=== PATIENT | male | born 1940 | race Caucasian/White ===

== ENCOUNTER 2021-12-21 07:06 | Observation (INO) ==
--- NOTE | 2021-11-18 14:10 | PAT Medication Instructions ---
Medication Instructions Date of Service November 18, 2021 Home Medications zinc sulfate 50 mg zinc (220 mg) capsule 50 mg PO Q2D aspirin 81 mg tablet,delayed release (Aspir-) 81 mg PO HS carbidopa 25 mg-levodopa 100 mg tablet (Sinemet) 1 tab PO TID gabapentin 100 mg capsule 100 mg PO HS magnesium oxide 400 mg PO QAM metoprolol succinate 50 mg tablet,extended release 24 hr 25 mg PO QAM ropinirole 4 mg tablet,extended release 24 hr 4 mg PO BID rosuvastatin 20 mg sprinkle capsule 20 mg PO HS cholecalciferol (vitamin D3) 10 mcg (400 unit) tablet (Vitamin D3) 10 mcg PO QAM finasteride 5 mg tablet 5 mg PO QAM meloxicam 15 mg tablet 15 mg PO QAM oxybutynin chloride 15 mg tablet,extended release 24 hr 15 mg PO HS sildenafil 25 mg tablet 25 mg PO UD PRN sexual intercourse tadalafil 5 mg tablet 5 mg PO HS STOP taking 24 hours before surgery sildenafil 25 mg tablet 25 mg PO UD PRN sexual intercourse DO NOT take the morning of surgery zinc sulfate 50 mg zinc (220 mg) capsule 50 mg PO Q2D magnesium oxide 400 mg PO QAM cholecalciferol (vitamin D3) 10 mcg (400 unit) tablet (Vitamin D3) 10 mcg PO QAM Take morning of surgery With a small sip of water, OTHERWISE NOTHING TO EAT OR DRINK AFTER MIDNIGHT: carbidopa 25 mg-levodopa 100 mg tablet (Sinemet) 1 tab PO TID metoprolol succinate 50 mg tablet,extended release 24 hr 25 mg PO QAM ropinirole 4 mg tablet,extended release 24 hr 4 mg PO BID finasteride 5 mg tablet 5 mg PO QAM Take evening before surgery aspirin 81 mg tablet,delayed release (Aspir-) 81 mg PO HS (continue as normal unless told otherwise by surgeon) carbidopa 25 mg-levodopa 100 mg tablet (Sinemet) 1 tab PO TID gabapentin 100 mg capsule 100 mg PO HS ropinirole 4 mg tablet,extended release 24 hr 4 mg PO BID rosuvastatin 20 mg sprinkle capsule 20 mg PO HS oxybutynin chloride 15 mg tablet,extended release 24 hr 15 mg PO HS tadalafil 5 mg tablet 5 mg PO HS Other Notes If you have any questions please call us at [phone] or [phone] or [phone] or [phone]
--- NOTE | 2021-11-26 12:18 | Anesthesiology Consultation ---
Date of Service November 26, 2021 Assessment & Plan (1) Encounter for pre-operative examination: - case discussed in detail with Dr. Franz who advised pt is acceptable to proceed without further evaluation or testing. - severe RLS: Pt states will need medication regimen continued as normal throughout hospital stay. He states will also notify surgeon's office. - cardiology office visit 04/07/2021: "...CAD s/p PCI 05/13/2015 LAD [employer] promus premier 2.25 mm x 16 mm at [place]...catheterization 01/02/19 at [facility] with non-obstructive CAD. Remains asymptomatic and stable at today's visit. July 2019 nuclear stress no ischemia...RBBB...return 1 year..." - Outpatient joint assessment: Patient is currently scheduled for inpatient pathway. If re-evaluated pending system levels during current pandemic/surgeon requests outpatient pathway, patient is not acceptable candidate for outpatient joint program from anesthesia standpoint. Chart Review Chart Review: Acceptable Risk for Surgery and Patient seen in Pre Admission Testing Teaching & Discussion Pre-Anesthesia Teaching/Discussion Notes: Instructed NPO after midnight before surgery, except medications with 15 cc of water. Medication instructions provided according to the PAT guidelines. History Surgery Operation Date: 12/21/21 07:15 Proposed Procedures p Left Total Knee Arthroplasty - Raphael Lugo MD Height/Weight Height: 5 ft 7 in Weight: 95 kg Allergies Allergy/AdvReac Type Severity Reaction Status Date / Time mirabegron [From Myrbetriq] Allergy "can't Verified 11/17/21 08:05 remember the reaction" hydrocodone AdvReac Unknown GI UPSET Verified 11/17/21 08:05 oxycodone AdvReac Unknown GI UPSET Verified 11/17/21 08:05 vicodin Allergy Unknown Uncoded 11/26/21 12:27 Medications Home Medications Medication Instructions Recorded Confirmed Last Taken zinc sulfate 50 mg zinc (220 mg) 50 mg PO Q2D #0 caps 11/11/11 11/17/21 Unknown capsule aspirin 81 mg tablet,delayed 81 mg PO HS 90 days #0 tabs 10/27/17 11/17/21 11/13/17 21:30 release (Aspir-) carbidopa 25 mg-levodopa 100 mg 1 tab PO TID #0 tabs 10/27/17 11/17/21 11/14/17 05:00 tablet (Sinemet) gabapentin 100 mg capsule 100 mg PO HS ##0 10/27/17 11/17/21 11/13/17 21:30 magnesium oxide 400 mg PO QAM ##0 10/27/17 11/17/21 11/13/17 08:00 metoprolol succinate 50 mg 25 mg PO QAM #30 tabs 10/27/17 11/17/21 11/14/17 05:00 tablet,extended release 24 hr ropinirole 4 mg tablet,extended 4 mg PO BID #0 tabs 10/27/17 11/17/21 11/13/17 21:30 release 24 hr rosuvastatin 20 mg sprinkle capsule 20 mg PO HS 04/04/19 11/17/21 Unknown cholecalciferol (vitamin D3) 10 10 mcg PO QAM 11/17/21 11/17/21 Unknown mcg (400 unit) tablet (Vitamin D3) finasteride 5 mg tablet 5 mg PO QAM 11/17/21 11/17/21 Unknown meloxicam 15 mg tablet 15 mg PO QAM 11/17/21 11/17/21 Unknown oxybutynin chloride 15 mg 15 mg PO HS 11/17/21 11/17/21 Unknown tablet,extended release 24 hr sildenafil 25 mg tablet 25 mg PO UD PRN sexual intercourse 11/17/21 11/17/21 Unknown tadalafil 5 mg tablet 5 mg PO HS 11/17/21 11/17/21 Unknown Past Medical History Medical History (Updated 11/26/21 @ 16:24 by Ashley Pérez PA-C) CAD (coronary artery disease) 1 stent Carotid artery dissection R, chronic stable finding per [facility] vascular surgery 01/2020, advised to remain on baby aspirin Erectile dysfunction GERD (gastroesophageal reflux disease) controlled per pt, takes Pepcid prn Hearing deficit wear bilat. GUZMAN's History of COVID-19 2020, pcr [place], not hosp; mild symptoms>resolved. Hypertension controlled, stable per pt Prediabetes Restless leg syndrome severe, pt states will need medications dosed as normal throughout hospital stay Skin cancer of face REMOVED Sleep apnea CPAP-compliant Patient denies h/o stroke, seizures, heart attack, heart failure, blood clots or blood transfusions. Exercise / Class Metabolic Activity II 4-5 Yardwork/Stairs/Walk up hill (denies CP or SOB with 1 FOS) Past Family History Family History Brother Family history of diabetes mellitus Past Surgical History Surgical History H/O arthroscopy of right knee History of appendectomy History of cardiac cath 2013 @ [facility] W DR. HARPER; x1 stent-promus premier everolomus-eluting [place] chromium coronary stent system ([employer]) "has had a couple more caths more recently at [facility], no stents"; follows w/Ana Curtis History of carpal tunnel release BILAT History of cholecystectomy History of colonoscopy History of heart artery stent X1 2013 @ [facility] History of total right knee replacement Past Anesthesia History No Hx of Anesthesia Complications and No Family Hx of Anesthesia Complications History of PONV No Hx of PONV and No Hx of Motion Sickness Social History Smoking Status: Former smoker tobacco type: cigarettes Do You Dip or Chew Tobacco: No Smoking End Date: quit 70 years ago Hx Alcohol Use: Yes Alcohol type: wine alcohol intake frequency: holidays/special occasions only Hx Substance Use: No substance use type: does not use Review of Systems Patient denies chest pain, shortness of breath, dyspnea on exertion, fever, chil ls, cough, wheezing, dizziness, lightheadedness, visual changes or palpitations. Physical Exam Vital Signs Vitals BP 151/75 P 70 TEMP 98.1 SP02 98% on RA RESP 17 Physical Full cervical extension range of motion without pain TMD 3.5 finger breadths Mallampati Score 2 Dentition: intact, plate upper and partial lower; denies chipped or loose teeth, caps/crowns or implants Lungs: normal respiratory effort. Clear throughout to auscultation, no adventitious breath sounds Cardiac: regular rate and rhythm, no murmurs noted Carotid arteries: negative bruit bilat Lab Results Anesthesia Preop Results Results Anesthesia Widget: WBC 7.85 K/ul (4.8-10.8) 11/26/21 Hgb 13.1 g/dl (14.0-18.0) L 11/26/21 Hct 40.3 % (40.1-51.0) 11/26/21 Plt 212 K/uL (130-400) 11/26/21 Na 139 mmol/L (136-145) 11/26/21 K 4.5 mmol/L (3.5-5.1) 11/26/21 Cl 105 mmol/L (98-107) 11/26/21 CO2 29 mmol/L (21-32) 11/26/21 BUN 23 mg/dl (6-23) 11/26/21 Creat 1.13 mg/dl (0.6-1.4) 11/26/21 Glucose Level 97 mg/dl (70-99(Fasting)) 11/26/21 PT 11.1 Seconds (9.0-12.0) 11/26/21 PTT 28.9 Seconds (21.0-31.0) 11/26/21 INR 1.0 (0.9-1.1) 11/26/21 HA1c 6.1 % (4.5-5.6) H 11/26/21 Urine Color Yellow 11/26/21 Urine Appearance Clear (Clear) 11/26/21 Urine pH 7.0 (4.5-7.5) 11/26/21 Urine Specific [place] 1.012 (1.000-1.030) 11/26/21 Urine Protein Negative (Negative) 11/26/21 Urine Glucose (UA) Negative (Negative) 11/26/21 Urine Ketones Negative (Negative) 11/26/21 Urine Blood Negative (Negative) 11/26/21 Urine Nitrite Negative (Negative) 11/26/21 Urine Bilirubin Negative (Negative) 11/26/21 Urine Urobilinogen Negative (Negative) 11/26/21 Urine Leukocyte Esterase Negative (Negative) 11/26/21 Blood Type A Positive 11/26/21 Antibody Screen NEGATIVE 11/26/21 Testing Electrocardiogram Date: 02/15/21 Sinus rhythm with 1st degree AV block, rate 68 bpm Left axis deviation RBBB Chest X-Ray Date: 02/15/21 Subsegmental atelectasis in the left base Stress Test Date: 07/17/19 Pharmacologic MPHR 83% Negative for infarct or ischemia Normal wall motion analysis Cardiac Catheterization Date: 01/02/19 LMA 20% stenosis Ostial Lcx 20% stenosis Ostial LAd 20% stenosis prior m to d LAD stent patent RCA 30% distal segment Other Testing CT abdomen pelvis 02/15/21 Low grade small bowel obstruction without discrete transition point Mild colonic stool burden COVID-19 Risk Screen Screening Information COVID-19 Screen Date: 11/26/21 Exposure 21 Days Family/Household +COVID Last 21 Days: No Exposure 10 Days Any COVID Exposure Last 10 Days: No Symptoms Last 10 Days Experienced COVID Sx Last 10 Days: No + COVID 0-90 Days COVID + in Last 0-90 Days: No
--- NOTE | 2021-12-19 09:11 | History & Physical Report ---
Date of Service December 19, 2021 Assessment & Plan (1) Primary osteoarthritis of left knee: Plan: Treatment options discussed with patient. He has failed conservative measures. He has previous right total knee and is doing well. He would like to proceed with left knee surgical intervention. Risks, benefits and alternatives to surgery including but not limited to infection, DVT, pain, stiffness, need for revision surgery, damage to blood vessels, damage to nerves, PE, , were discussed with the patient and they wish to proceed. Plan on left total knee arthroplasty scheduled for December 21 at [facility] with Dr. Lugo. We will plan on aspirin 81 mg twice daily for 1 month postop for DVT prophylaxis. We will plan on inpatient rehab/alf facility postop. All questions answered. History of Present Illness Chief Complaint: Left knee pain Primary Care Provider: Uzair Stone MD 81-year-old male with past medical history significant for CAD, GERD, hypertension, restless leg, previous right total knee who presents with ongoing left knee pain. Patient has recurrent effusion and pain in his knee interfering with his daily activities. He has failed conservative measures including anti- inflammatories and multiple cortisone injections and viscoelastic injections. He would like to proceed with surgical intervention. Patient denies headaches, sweats, fevers, chills, double vision, blurred vision, cough, sore throat, dysphagia, chest pain, sob, wheezing, n/v/d/c, numbness, tingling, fatigue, urinary symptoms, mood disorders. ROS positive for Left knee pain and stiffness. Allergies Allergy/AdvReac Type Severity Reaction Status Date / Time mirabegron [From Myrbetriq] Allergy "can't Verified 11/17/21 08:05 remember the reaction" hydrocodone AdvReac Unknown GI UPSET Verified 11/17/21 08:05 oxycodone AdvReac Unknown GI UPSET Verified 11/17/21 08:05 vicodin Allergy Unknown Uncoded 11/26/21 12:27 Home Medications Medication Instructions Recorded Confirmed Type zinc sulfate 50 mg zinc (220 mg) 50 mg PO Q2D #0 caps 11/11/11 11/17/21 History capsule aspirin 81 mg tablet,delayed 81 mg PO HS 90 days #0 tabs 10/27/17 11/17/21 History release (Aspir-) carbidopa 25 mg-levodopa 100 mg 1 tab PO TID #0 tabs 10/27/17 11/17/21 History tablet (Sinemet) gabapentin 100 mg capsule 100 mg PO HS ##0 10/27/17 11/17/21 History magnesium oxide 400 mg PO QAM ##0 10/27/17 11/17/21 History metoprolol succinate 50 mg 25 mg PO QAM #30 tabs 10/27/17 11/17/21 History tablet,extended release 24 hr ropinirole 4 mg tablet,extended 4 mg PO BID #0 tabs 10/27/17 11/17/21 History release 24 hr rosuvastatin 20 mg sprinkle capsule 20 mg PO HS 04/04/19 11/17/21 History cholecalciferol (vitamin D3) 10 10 mcg PO QAM 11/17/21 11/17/21 History mcg (400 unit) tablet (Vitamin D3) finasteride 5 mg tablet 5 mg PO QAM 11/17/21 11/17/21 History meloxicam 15 mg tablet 15 mg PO QAM 11/17/21 11/17/21 History oxybutynin chloride 15 mg 15 mg PO HS 11/17/21 11/17/21 History tablet,extended release 24 hr sildenafil 25 mg tablet 25 mg PO UD PRN sexual intercourse 11/17/21 11/17/21 History tadalafil 5 mg tablet 5 mg PO HS 11/17/21 11/17/21 History Past Med/Surg History Medical History (Updated 12/19/21 @ 09:10 by Alberto Rich PA-C) CAD (coronary artery disease) 1 stent Carotid artery dissection R, chronic stable finding per [facility] vascular surgery 01/2020, advised to remain on baby aspirin Erectile dysfunction GERD (gastroesophageal reflux disease) controlled per pt, takes Pepcid prn Hearing deficit wear bilat. GUZMAN's History of COVID-19 2020, pcr [place], not hosp; mild symptoms>resolved. Hypertension controlled, stable per pt Prediabetes Restless leg syndrome severe, pt states will need medications dosed as normal throughout hospital stay Skin cancer of face REMOVED Sleep apnea CPAP-compliant Surgical History H/O arthroscopy of right knee History of appendectomy History of cardiac cath 2013 @ [facility] Juan Jose HARPER; x1 stent-promus premier everolomus-eluting [place] chromium coronary stent system ([employer]) "has had a couple more caths more recently at [facility], no stents"; follows w/[place] History of carpal tunnel release BILAT History of cholecystectomy History of colonoscopy History of heart artery stent X1 2013 @ [facility] [place] History of total right knee replacement Family History Brother Family history of diabetes mellitus Social History Smoking Status: Former smoker Second Hand Exposure: No; Hx Alcohol Use: Yes Alcohol type: wine Hx Substance Use: No Preferred Language: Divehi Communication Ability: Effective Director Advertising Required: No Beliefs That Will Affect Care: None Current Living Situation: Alone Feels Safe at Home: Yes Assistive Devices: CPAP, Denture - Upper, Denture - Lower, Glasses and Hearing Aid - Bilateral Review of Systems All systems reviewed & are unremarkable except as noted in HPI & below Physical Exam Constitutional: well developed and well nourished; no acute distress Eyes: PERRL, conjunctivae normal, anicteric sclerae ENMT: external ear and nose normal, oropharynx normal Neck: trachea midline, no thyromegaly Respiratory: normal respiratory effort, lungs clear to auscultation Cardiovascular: RRR, no murmur, no edema Musculoskeletal: Left knee: Left knee demonstrates varus alignment. There is moderate effusion. He has tenderness medial joint line. Stable to valgus and varus stress test. Negative Atul's. Range of motion is 0 125 degrees.There is crepitation with range of motion. Skin: no rashes, warm and dry Neurologic: patellar DTR's 2+ bilat, sensation intact Psychiatric: A+Ox3, euthymic affect Results & Data ([place]) Diagnostic Findings Left knee radiographs demonstrate significant joint space narrowing medial compartment, near [id number]. There is mild subluxation of femur on the tibia. There is periarticular osteophyte formation.
[~2021-12-21 07:06] MED LIST: ACETAMINOPHEN 500 MG TAB PO SCH; BUPIVACAINE 0.5 % 5 MG/1 ML PF 10ML VIAL ONE; CeleBREX 200 MG CAP PO SCH; FAMOTIDINE 20 MG TAB PO SCH; GABAPENTIN 300 MG CAP PO SCH; LR 500ML BOLUS, THEN 15ML/HR IV SCH; METOCLOPRAMIDE HCL 10 MG TABLET PO SCH; MIDAZOLAM HCL 1 MG/ML 2ML VIAL ONE; ROPIVACAINE 0.5% 5 MG/ML 30 ML VIAL ONE; ROPIVACAINE 0.5% HCL/PF 150 MG, BUPIVACAINE 0.75% MPF 20 ML, EPINEPHrine 30MG/30ML (OR ... INFIL SCH; TRANEXAMIC ACID 1,000 MG **IV Intra-op IV SCH; TRANEXAMIC ACID 1,000 MG **IV Pre-op IV SCH; ceFAZolin 2000MG 2,000 MG/15 ML SYR IV SCH; dexAMETHasone 4 MG TAB PO SCH
--- NOTE | 2021-12-21 07:42 | History & Physical Bridge Note ---
Date of Service December 21, 2021 History & Physical Bridge Note I have examined the patient, reviewed the History & Physical and in the interval since the performance of the History & Physical I have noted the following changes of clinical significance: no changes noted
[2021-12-21] MEDS ORDERED: ORTHO JOINT ANESTHETIC ONE (07:55)
[2021-12-21] MEDS ORDERED: LIDOCAINE 2% MPF LOCAL 5 ML VIAL INFIL ONE (08:24)
[2021-12-21] MEDS ORDERED: PROPOFOL IV EMULSION 10 MG/ML 20 ML VIAL IV ONE ×4 (08:24→11:43)
[2021-12-21] MEDS ORDERED: MIDAZOLAM HCL 1 MG/ML 2ML VIAL ONE (08:25)
[2021-12-21] MEDS ORDERED: fentaNYL citrate 100 MCG/2 ML VIAL ONE (09:27)
[2021-12-21] MEDS ORDERED: PHENYLEPHRINE 100MCG/ML 5ML SYR ONE (09:50)
[2021-12-21] MEDS ORDERED: ONDANSETRON INJ 2 MG/ML 2 ML VIAL ONE (10:09)
--- NOTE | 2021-12-21 11:31 | Operative Report ---
Post Operative Report Pre & Post Diagnosis Operation Date: 12/21/21 09:25 Pre-Op Diagnosis: Primary Osteoarthritis, Left Knee Post-Op Diagnosis: Primary Osteoarthritis, Left Knee I identified the patient and participated in the time-out.: Yes Procedure Operation Date: 12/21/21 09:25 Actual Procedures p Left Total Knee Arthroplasty(Left), application marshall and Acticoat superficial wound VAC- Raphael Lugo MD Surgeon Raphael Lugo MD Gun Repair Clerk Bert SALDIVAR Estimated Blood Loss 5 Findings Consistent with Post-Op Diagnosis Specimens Bone cuts Drains 2 Hemovac Anesthesia Type MAC Spinal Regional Complications none Disposition Disposition: Recovery Room Indications 81-year-old male with chronic progressive osteoarthritis in his left knee. Radiographs demonstrates [id number] medial compartment on flexion views. There is osteophytes and subluxation of the femur medial on the tibia. Patient has successful right knee replacement in the past. Description of Procedure The patient was taken to the operating room and anesthetized under spinal MAC regional block. Patient was placed supine on the the operating table. A pneumatic tourniquet was placed about the left upper thigh. The knee exam demonstrated large effusion no instability varus knee good range of motion 0 through 125 degrees. The involved leg was elevated exsanguinated with Esmarch bandage and the pneumatic tourniquet was raised to 325 millimeters mercury. A longitudinal incision was made across the anterior knee. Skin flaps were elevated. An incision was made into the medial retinaculum and extended up into the mid third of the quadriceps tendon and extended down to the tibial tubercle. Intra-articular findings demonstrated osteoarthritis in the patellofemoral joint and medial compartment with grade 4 anteromedial osteoarthritis tricompartmental osteophytes. The knee was exposed by excising cruciate ligaments and menisci. The infrapatellar fat pad was resected. The fat pad over the anterior femur at the upper aspect of the articular surface was resected for placement of the component in that area. A subperiosteal peel lateral release was performed around the patella. The [employer] journey 2.0 posterior stabilized total knee arthroplasty system was utilized for the procedure. The custom femoral cutting guide was pin joaquin in position. The distal femoral cut was made. The size 6, 5 in 1 cutting block was placed. The anterior posterior and chamfer cuts were made. The knee was extended and a free hand cut technique was performed to the patella. The patella with was measured and the width was reproduced using a 35 symmetrical patella component. 3 drill holes are made for the patella component pegs. The tibia was then subluxed. The custom tibial cutting block was pinned in position and the proximal tibial cut was made with the oscillating saw. The size 6 tibial trial was externally rotated in line with the tibial tubercle and pinned in position. The punch for the stem was used. The femoral trial was inserted and centered the notch cutting devices were used and the collet was placed. Tibial trials were used for the insert. The size 12 trial gave balanced ligaments through full range of motion. Patella tracking was assessed with range of motion. The patella tracked centrally. The trials were removed. The Orthomix anesthetic cocktail was injected per protocol. The cut bone surfaces and soft tissue were copiously irrigated with pulsatile lavage saline solution. The final components were cemented with Simplex cement. The final components were [employer] journey 2.0 posterior stabilized left femoral component, size 6 left tibial component, a 12 mm left posterior stabilized tibial polyethylene insert and a 35 symmetrical patella. After the cement cured, the Betadine soak was used for 3 minutes. The knee was then copiously irrigated with pulsatile lavage saline solution. 2 drains were brought out laterally connected to Hemovac. The quadriceps tendon and medial retinaculum were closed with interrupted [id number] #1 Vicryl sutures. The knee was taken through full range of motion and repair was secure. Knee range of motion was 0 through 135 degrees. the subcutaneous tissues were closed with 2-0 Vicryl sutures. The skin was closed with ann. A marshall and Acticoat superficial wound VAC was applied. The tourniquet was let down and the patient had good capillary refill to the extremity. The patient tolerated the procedure well. My physician desk assistant Bert SALDIVAR participated as assistant professor of marine biology and was integral part in all aspects of the procedure including prepping, draping, leg positioning, soft tissue retraction, instrument management and assisted in the closure ,dressings application and will participate in postoperative care the patient. I attest to the content of the Intraoperative Record and any orders documented t herein. Any exceptions are noted below.
[2021-12-21] MEDS ORDERED: ePHEDrine sulfate 50 MG/ML AMP IV PRN (12:52)
[2021-12-21] MEDS ORDERED: fentaNYL citrate 100 MCG/2 ML VIAL IV PRN (12:52)
[2021-12-21] MEDS ORDERED: ATROPINE SULFATE 0.1 MG/ML 10ML SYR IV PRN (12:52)
--- NOTE | 2021-12-21 12:57 | Anesthesiology Progress Note ---
Date of Service December 21, 2021 Anesthesia Post Procedure Vital Signs Vital Signs: Temp Pulse Resp BP Pulse Ox O2 Del Method 12/21/21 12:50 83 13 155/88 H Room Air 12/21/21 12:40 82 22 126/60 96 Room Air 12/21/21 12:30 86 20 106/59 L 98 Room Air 12/21/21 12:20 36.3 C L 85 14 115/72 96 Room Air 12/21/21 08:03 36.4 C L 74 18 140/87 95 Room Air Pain Intensity Left Knee: Pain Intensity: 2 Transfer of Care Handoff Completed per policy Notes Mental Status: alert / awake / arousable and participated in evaluation Nausea / Vomiting: adequately controlled Pain: adequately controlled Airway Patency, RR, SpO2: stable & adequate BP & HR: stable & adequate Hydration State: stable & adequate Neuraxial Anesthesia: was administered and sensory block is resolving Anesthetic Complications: no major complications apparent and Pt Satisfied with anesthetic care
--- NOTE | 2021-12-21 13:02 | XRay Report ---
XR knee LT 1 or 2V routine HISTORY: 81 years-old Male Surgical Post Op left knee total joint arthroplasty COMPARISON: None TECHNIQUE: 2 views of the left knee FINDINGS: Total joint arthroplasty with patellar resurfacing. Anterior midline skin ann are noted along wit h expected postoperative soft tissue swelling with deep tissue air with surgical drainage catheter. A rterial calcifications. No acute fracture, dislocation or unexpected opaque foreign body. IMPRESSION: Total joint arthroplasty with expected postoperative changes. ACT 112: Negative or not required by law. The above report was generated using voice recognition software. It may contain grammatical, syntax o r spelling errors. Electronically signed by: Hemant Galvan M.D. 12/21/2021 1:00 PM
[2021-12-21] MEDS ORDERED: HYDROmorphone INJ 0.5 MG/0.5 ML SYR IV PRN (13:44)
[2021-12-21] MEDS ORDERED: NALOXONE HCL 0.4 MG/1 ML VIAL/CARP IV PRN (13:44)
[2021-12-21] MEDS ORDERED: SILDENAFIL 25 MG PO PRN (13:44)
[2021-12-21] MEDS ORDERED: MAGNESIUM HYDROXIDE SUSP 30 ML UDC PO PRN (13:44)
[2021-12-21] MEDS ORDERED: METOCLOPRAMIDE HCL INJ 5 MG/ML 2 ML VIAL IV PRN (13:44)
[2021-12-21] MEDS ORDERED: ONDANSETRON INJ 2 MG/ML 2 ML VIAL IV PRN (13:44)
[2021-12-21] MEDS ORDERED: traMADol HCL 50 MG TABLET PO PRN (13:44)
[2021-12-21] MEDS ORDERED: bisacodyL 10 MG SUPP PR PRN (13:44)
[2021-12-21] MEDS ORDERED: CARBIDOPA/LEVODOPA 25/100MG TAB PO SCH (14:00)
[2021-12-21] MEDS: SODIUM CHLORIDE 0.9% 1000ML 1,000 ML IV SCH (16:01)
[2021-12-21] MEDS: ACETAMINOPHEN 500 MG TAB PO SCH ×2 (16:02→21:56)
[2021-12-21] MEDS ORDERED: Nursing to Pharmacy Communication SCH (16:15)
[2021-12-21] MEDS: ceFAZolin 2000MG 2,000 MG/15 ML SYR IV SCH (17:29)
[2021-12-21] MEDS: ROPINIROLE 4 MG PO SCH (17:29)
--- NOTE | 2021-12-21 18:25 | Hospitalist Consultation ---
Date of Consultation December 21, 2021 Assessment & Plan (1) Primary osteoarthritis of left knee: POD #[address] Lugo - Pain control, DVT prophylaxis, PT/OT per primary service - Labs in AM - Encourage IS (2) CAD (coronary artery disease): (3) BPH (benign prostatic hyperplasia): (4) GERD (gastroesophageal reflux disease): (5) Dyslipidemia: (6) Sleep apnea: Order written for pt to use his own CPAP, which he brought (7) Hypertension: (8) Restless leg syndrome: Pt brought own medication to use since a specific brand is necessary - spoke with nursing to be sure med ordered correctly for pt based on home dosing Plan Med rec reviewed with patient and updated. Continue home medications as appropriate. Pt seen and reviewed with collaborating physician, Dr. Rodríguez. Plan of care discussed and as outlined above. Thank you for this consultation. We will continue to follow the patient with you. A [facility] of the [facility] team is available 27/09 via Cloud[employer]. Please don't hesitate to reach out with questions. Kofi Keith PA-C Supervising Physician Co-Signing Physician Notes Patient seen and examined at bedside for medical consult status post left TKR by Dr. Lugo. Patient had severe pain in the left knee with osteoarthritis, underwent surgery today, patient doing fine hemodynamically, patient reports pain under control, patient denies any new complaints or fevers in the last 1 week preceding up to the surgery. Patient denies tobacco use, reports very occasional alcohol use, denies any recreational drug use. Patient reports eating okay, has not moved gas or bowel, will continue to monitor. IS, pain Mx, PT/OT, DVT Px (per primary). Upon examination: GENERAL: Alert and oriented x3. NAD, on RA. HEENT: No pallor, no icterus. Pupils equal, round and reactive to light. Oral mucosa moist. NECK: No JVD, no neck masses. HEART: S1 and S2 heard. Regular rate and rhythm. No murmur, no gallop. RESPIRATORY SYSTEM: Normal AP diameter. No accessory muscle use. No wheezing, no crackles. ABDOMEN: Soft, bowel sounds present, nontender, no distention. CENTRAL NERVOUS SYSTEM: No facial droop. Speech is clear. Obeys simple commands. Moves extremities. EXTREMITIES: No edema, no erythema seen. Lt knee w/ clean dressing and hemovac drainage w/ serosanguinous collection noted. I have seen and examined the patient and have discussed the case with the provider above. I agree with the assessment and plan as stated. History of Present Illness Reason for Consultation: Post-operative Medical Management Requesting Physician: Dr. Lugo Attending Physician: Dr. Barnhart History of Present Illness This is an 81 y/o male with a PMH of CAD, prior ICA dissection, BPH, ED, GERD, HTN, RLS, sleep apnea, and prediabetes who underwent left TKR today by Dr. Lugo and for whom we have been consulted to assist with post-operative medical management. Pt reports undergoing right TKR ten years and doing well without significant post-operative complications. He has had ongoing issues with left knee pain that has gradually worsened and failed conservative management including injections so he decided to proceed with TKR. Currently, he is feeling well and has no complaints. Denies chest pain, dyspnea, GUZMAN, dizziness, N/V. Tolerating solid food without issue. Moving toes bilaterally. Only concern at present is getting the correct medication for his RLS and at the right time. He did bring his own CPAP to use while admitted. Allergies Allergy/AdvReac Type Severity Reaction Status Date / Time mirabegron [From Myrbetriq] Allergy "can't Verified 12/21/21 08:06 remember the reaction" hydrocodone AdvReac Unknown GI UPSET Verified 12/21/21 08:06 oxycodone AdvReac Unknown GI UPSET Verified 12/21/21 08:06 vicodin Allergy Unknown Uncoded 12/21/21 08:06 Home Medications Medication Instructions Recorded Confirmed Type zinc sulfate 50 mg zinc (220 mg) 25 mg PO Q2D #0 caps 11/11/11 12/21/21 History capsule aspirin 81 mg tablet,delayed 81 mg PO QPM 90 days #0 tabs 10/27/17 12/21/21 History release (Aspir-) carbidopa 25 mg-levodopa 100 mg 1 tab PO BID #0 tabs 10/27/17 12/21/21 History tablet (Sinemet) gabapentin 100 mg capsule 100 mg PO DIRECTED ##0 10/27/17 12/21/21 History magnesium oxide 400 mg PO QAM ##0 10/27/17 12/21/21 History metoprolol succinate 50 mg 25 mg PO QAM #30 tabs 10/27/17 12/21/21 History tablet,extended release 24 hr ropinirole 4 mg tablet,extended 4 mg PO BID #0 tabs 10/27/17 12/21/21 History release 24 hr rosuvastatin 20 mg sprinkle capsule 20 mg PO QPM 04/04/19 12/21/21 History cholecalciferol (vitamin D3) 10 10 mcg PO QAM 11/17/21 12/21/21 History mcg (400 unit) tablet (Vitamin D3) finasteride 5 mg tablet 5 mg PO QAM 11/17/21 12/21/21 History meloxicam 15 mg tablet 15 mg PO QAM 11/17/21 12/21/21 History oxybutynin chloride 15 mg 15 mg PO QPM 11/17/21 12/21/21 History tablet,extended release 24 hr sildenafil 25 mg tablet 25 mg PO UD PRN sexual intercourse 11/17/21 12/21/21 History tadalafil 5 mg tablet 5 mg PO HS 11/17/21 12/21/21 History Patient History Medical History (Updated 12/21/21 @ 18:22 by Tabitha Keith PA-C) BPH (benign prostatic hyperplasia) CAD (coronary artery disease) 1 stent Carotid artery dissection R, chronic stable finding per [facility] vascular surgery 01/2020, advised to remain on baby aspirin Erectile dysfunction GERD (gastroesophageal reflux disease) controlled per pt, takes Pepcid prn Hearing deficit wear bilat. GUZMAN's History of COVID-19 2020, pcr [facility], not hosp; mild symptoms>resolved. Hypertension controlled, stable per pt Prediabetes Restless leg syndrome severe, pt states will need medications dosed as normal throughout hospital stay Skin cancer of face REMOVED Sleep apnea CPAP-compliant Surgical History H/O arthroscopy of right knee History of appendectomy History of cardiac cath 2013 @ [facility]; x1 stent-promus premier everolomus-eluting [place] chromium coronary stent system ([employer]) "has had a couple more caths more recently at [facility], no stents"; follows w/Ana Curtis History of carpal tunnel release BILAT History of cholecystectomy History of colonoscopy History of heart artery stent X1 2014 @ 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 Beliefs That Will Affect Care: [facility] Samaritan Beliefs: [employer] Current Living Situation: Spouse Other Information That Helps Us Care for You: No Feels Safe at Home: Yes Safety Concerns: Feels Safe At This Time Assistive Devices: CPAP, Denture - Upper, Denture - Lower, Glasses and Hearing Aid - Bilateral Assistive Devices Comment: lower is partial Review of Systems Review of Systems: All systems reviewed & are unremarkable except as noted in HPI & below Constitutional: no fever, no chills, no fatigue and no anorexia Eyes: no diplopia Ear, Nose, Mouth, Throat: no nasal congestion, no dry mouth, no sore throat and no dysphagia Respiratory: no cough and no dyspnea Cardiovascular: no chest pain, no palpitations and no edema Gastrointestinal: no abdominal pain, no nausea and no vomiting Genitourinary: no dysuria or no hematuria Musculoskeletal: as per Subjective / HPI; no back pain and no neck pain Integumentary: no yellowing of the skin Neurologic: no generalized weakness, no dizziness and no headache(s) Psychiatric: no depression and no anxiety Physical Exam Constitutional: well developed and well nourished; no acute distress Eyes: + anicteric sclerae Neck: trachea midline Respiratory: no respiratory distress and no labored breathing Auscultation: lungs clear to auscultation bilaterally; no rales, no rhonchi and no wheezes Cardiovascular: Rate/Rhythm: + abnormal rate and + abnormal rhythm Vessels: radial pulses present Extremities: no pedal edema Gastrointestinal (Abdomen): Inspection/Auscultation: normal bowel sounds; abdomen not distended Percussion/Palpation: abdomen soft Musculoskeletal: left knee with dressing C/D/I, drain in place Skin: no jaundice Neurologic: moves all extremities; not confused Psychiatric: A+Ox3, euthymic affect Results & Data Results & Data ([facility]) Vital Signs (Past 12 Hours) Vital Signs Temp Pulse Pulse Resp BP Pulse Ox O2 Del Method 12/21/21 15:50 36.4 C L 74 18 170/82 H 97 Room Air 12/21/21 15:09 36.4 C L 81 16 154/86 H 97 Room Air 12/21/21 14:14 36.6 C 75 16 132/79 95 Room Air 12/21/21 13:46 36.4 C L 77 16 155/82 H 95 Room Air 12/21/21 13:30 82 20 144/92 H 96 Room Air 12/21/21 13:20 83 19 165/85 H 98 Room Air 12/21/21 13:10 36.3 C L 75 16 145/84 H 96 Room Air 12/21/21 13:00 77 16 138/82 96 Room Air 12/21/21 12:50 83 13 155/88 H 97 Room Air 12/21/21 12:40 82 22 126/60 96 Room Air 12/21/21 12:30 86 20 106/59 L 98 Room Air 12/21/21 12:20 36.3 C L 85 14 115/72 96 Room Air 12/21/21 08:03 36.4 C L 74 18 140/87 95 Room Air Laboratory Results 12/21/21 07:34 SARS-CoV-2, RNA, NAAT NEGATIVE Medications Administered Acetaminophen (Acetaminophen 500 Mg Tab) 1,000 mg PO Q8 VIBHA Stop: 01/20/22 15:59 Last Admin: 12/21/21 16:02 Dose: 1,000 mg Documented By: FIDEL Sodium Chloride (Nss 1000ml) 1,000 mls @ 100 mls/hr IV .Q10H VIBHA Stop: 12/22/21 06:00 Last Admin: 12/21/21 16:01 Dose: 100 mls/hr Documented By: FIDEL Cefazolin Sodium (Ancef 2000mg) 2,000 mg in 15 mls @ 3.75 mls/min IV Q8H VIBHA; Protocol Stop: 12/22/21 02:33 Last Admin: 12/21/21 17:29 Dose: 3.75 mls/min Documented By: FIDEL Ropinirole 4 Mg Tablet Extended Release 24 Hr) Non- Formulary Patient's Own Med 1 each PO BID@6530,6580 VIBHA Stop: 01/20/22 17:29 Last Admin: 12/21/21 17:29 Dose: 1 tab Documented By: FIDEL Discontinued Medications Acetaminophen (Acetaminophen 500 Mg Tab) 1,000 mg PO PREOP VIBHA Stop: 12/21/21 18:00 Last Admin: 12/21/21 08:18 Dose: 1,000 mg Documented By: LITZY Carbidopa/Levodopa (Carbidopa/Levodopa 25/100mg Tab) 1 tab PO TID VIBHA Stop: 01/20/22 13:59 Last Admin: 12/21/21 16:02 Dose: 1 tab Documented By: FIDEL Celecoxib (Celebrex 200 Mg Cap) 200 mg PO PREOP VIBHA Stop: 12/21/21 18:00 Last Admin: 12/21/21 08:19 Dose: 200 mg Documented By: LITZY Dexamethasone (Dexamethasone 4 Mg Tab) 8 mg PO PREOP VIBHA Stop: 12/21/21 18:00 Last Admin: 12/21/21 08:19 Dose: 8 mg Documented By: LITZY Famotidine (Famotidine 20 Mg Tab) 20 mg PO PREOP VIBHA Stop: 12/21/21 18:00 Last Admin: 12/21/21 08:19 Dose: 20 mg Documented By: LITZY Gabapentin (Gabapentin 300 Mg Cap) 300 mg PO PREOP VIBHA Stop: 12/21/21 18:00 Last Admin: 12/21/21 08:19 Dose: 300 mg Documented By: LITZY Lactated Ringer's (Lr) 1,000 mls @ 15 mls/hr IV .Q24H VIBHA Stop: 12/21/21 18:00 Last Infusion: 12/21/21 09:28 Dose: 0 mls/hr Documented By: [facility] Admin: 12/21/21 08:30 Dose: 15 mls/hr Documented By: LITZY Cefazolin Sodium (Ancef 2000mg) 2,000 mg in 15 mls @ 3.75 mls/min IV PREOP VIBHA; Protocol Stop: 12/21/21 18:00 Last Admin: 12/21/21 09:28 Dose: 3.75 mls/min Documented By: BLB Tranexamic Acid (Tranexamic Acid / 0.7% Nacl) 1,000 mg in 100 mls @ 600 mls/hr IV TODAY@0600 VIBHA Stop: 12/21/21 18:00 Last Infusion: 12/21/21 09:20 Dose: 0 mls/hr Documented By: Admin: 12/21/21 09:10 Dose: 600 mls/hr Documented By: LITZY Tranexamic Acid (Tranexamic Acid / 0.7% Nacl) 1,000 mg in 100 mls @ 600 mls/hr IV TODAY@0600 [facility] Stop: 12/21/21 18:00 Last Infusion: 12/21/21 11:26 Dose: 0 mls/hr Documented By: Admin: 12/21/21 11:08 Dose: 600 mls/hr Documented By: PABLO Ropivacaine 150 mg/Bupivacaine HCl 20 ml/Epinephrine HCl 0.15 mg/Ketorolac Tromethamine 30 mg/Dexamethasone 4 mg/ Ketamine HCl 10 mg/ Clonidine HCl 100 mcg/ Sodium Chloride 88.35 mls @ 0 mls/hr INFIL TODAY@0600 VIBHA; Protocol Stop: 12/21/21 06:01 Last Admin: 12/21/21 11:11 Dose: 93.35 mls/hr Documented By: DENITA Metoclopramide HCl (Metoclopramide Hcl 10 Mg Tablet) 10 mg PO PREOP VIBHA Stop: 12/21/21 18:00 Last Admin: 12/21/21 08:19 Dose: 10 mg Documented By: LITZY Miscellaneous (Ortho Joint Anesthetic ) Confirm Administered Dose 1 each .ROUTE .STK-MED ONE Stop: 12/21/21 07:56 Last Admin: 12/21/21 11:12 Dose: Not Given Documented By: GRETA
[2021-12-21] MEDS: GABAPENTIN 100 MG CAP PO SCH ×2 (18:41→21:56)
[2021-12-21] MEDS ORDERED: ROPINIROLE 4 MG PO SCH (21:00)
[2021-12-21] MEDS ORDERED: SENNA 8.6 MG TAB PO SCH (21:00)
[2021-12-21] MEDS ORDERED: NON-FORMULARY MEDICATION (Tadalafil 5 mg Tablet) PO SCH (21:00)
[2021-12-21] MEDS ORDERED: ROSUVASTATIN CALCIUM 20 MG TAB PO SCH ×2 (21:00)
[2021-12-21] MEDS ORDERED: OXYBUTYNIN CHLORIDE XL 5 MG TABCR PO SCH (21:00)
[2021-12-21] MEDS ORDERED: GABAPENTIN 100 MG CAP PO SCH (21:00)
[2021-12-21] MEDS: DOCUSATE SODIUM 100 MG CAP PO SCH (21:55)
[2021-12-21] MEDS: CARBIDOPA/LEVODOPA 25/100MG TAB PO SCH (21:56)
[2021-12-21] MEDS: ASPIRIN 81 MG ECTAB PO SCH (21:56)
[2021-12-22] MEDS: ceFAZolin 2000MG 2,000 MG/15 ML SYR IV SCH (02:08)
[2021-12-22] MEDS: SODIUM CHLORIDE 0.9% 1000ML 1,000 ML IV SCH (02:40)
[2021-12-22] MEDS: ACETAMINOPHEN 500 MG TAB PO SCH (05:48)
[2021-12-22] MEDS: ROPINIROLE 4 MG PO SCH (05:48)
[2021-12-22 06:41] LABS: Hematocrit (blood only) 32.5 % (40.1-51.0); Hemoglobin 10.8 g/dl (14.0-18.0); Mean Corpuscular Hemoglobin 29.6 pg (25.0-34.0); Mean Corpuscular Hgb Conc 33.2 g/dL (32.0-36.0); Mean Platelet Volume 11.1 fL (9.4-12.4); Platelet Count 212 K/uL (130-400); RDW Coefficient of Variation 12.3 % (11.5-14.5); RDW Standard Deviation 40.4 fL (36.4-46.3); Red Blood Count 3.65 M/uL (4.63-6.08); White Blood Count 19.26 K/ul (4.8-10.8)
[2021-12-22 07:09] LABS: BUN Creatinine Ratio 23.5 (10-20); Creatinine Clr Calc Pharmacy 64.1 ml/min; Est GFR (African American) 82.9 ml/min; Est GFR (Non-African American) 71.5 ml/min; Potassium 4.1 mmol/L (3.5-5.1)
--- NOTE | 2021-12-22 07:37 | Orthopedic Progress Note ---
Date of Service December 22, 2021 Assessment & Plan (1) Primary osteoarthritis of left knee: Plan: Postop day #1 left total knee -PT/OT -Pain management as written -DVT prophylaxis: SCDs, teds, aspirin 81 mg twice daily -AM labs: Hemoglobin 10.8 from 13 preop. Acute blood loss anemia likely due to surgical loss versus dilutional. Leukocytosis likely reactive. Asymptomatic. -Discharge planning: Patient plans on going to [place] postop. He states he has been in contact with them and a 2 of the bed available for him. Patient is stable for discharge once transferred to [place] with set up. Case management consult has been placed. Admission and Anticipated Discharge Date Admission Date: December 21, 2021 Subjective Patient is postop day 1 left total knee. He is doing well this morning. Pain is well controlled. No other complaints. Review of Systems Review of Systems: All systems reviewed & are unremarkable except as noted in Subjective Physical Exam Physical Exam: Left knee: Dressing is clean, dry, intact. Toes are mobile with good dorsiflexion no calf tenderness. Distally neurovascular status and sensation intact. Constitutional: WD/WN, vitals as above Results & Data ([facility]) Vital Signs (Past 12 Hours) Vital Signs Temp Pulse Resp BP Pulse Ox O2 Del Method 12/22/21 03:16 36.4 C L 78 18 114/68 96 CPAP 12/21/21 21:40 Room Air 12/21/21 23:19 36.4 C L 86 18 122/72 96 12/21/21 20:14 36.4 C L 77 18 159/74 H 96 Room Air
[2021-12-22] MEDS ORDERED: MAGNESIUM OXIDE 400 MG TAB PO SCH (09:00)
[2021-12-22] MEDS ORDERED: MULTIVITAMIN TAB PO SCH (09:00)
[2021-12-22] MEDS ORDERED: METOPROLOL SUCC 25MG EXT REL TAB PO SCH (09:00)
[2021-12-22] MEDS ORDERED: MELOXICAM 7.5 MG TAB PO SCH (09:00)
[2021-12-22] MEDS ORDERED: FINASTERIDE 5 MG TAB PO SCH (09:00)
[2021-12-22] MEDS ORDERED: ZINC SULFATE 220 MG CAPSULE PO SCH (09:00)
[2021-12-22] MEDS ORDERED: CHOLECALCIFEROL 400 UNITS 10 MCG TAB PO SCH (09:00)
[2021-12-22] MEDS: CARBIDOPA/LEVODOPA 25/100MG TAB PO SCH (09:31)
[2021-12-22] MEDS: ASPIRIN 81 MG ECTAB PO SCH (11:59)
[2021-12-22] MEDS: DOCUSATE SODIUM 100 MG CAP PO SCH (12:00)
--- NOTE | 2021-12-22 13:50 | Hospitalist Progress Note ---
Date of Service December 22, 2021 Assessment & Plan (1) Primary osteoarthritis of left knee: Plan: POD #[address] Lugo - Pain control, DVT prophylaxis, PT/OT per primary service - Labs in AM - Encourage IS (2) CAD (coronary artery disease): (3) BPH (benign prostatic hyperplasia): (4) GERD (gastroesophageal reflux disease): (5) Dyslipidemia: (6) Sleep apnea: Plan: Order written for pt to use his own CPAP, which he brought (7) Hypertension: (8) Restless leg syndrome: Plan: Pt brought own medication to use since a specific brand is necessary - spoke with nursing to be sure med ordered correctly for pt based on home dosing Plan Med rec reviewed with patient and updated. Continue home medications as appropriate. Pt seen and reviewed with collaborating physician, Dr. Rodríguez. Plan of care discussed and as outlined above. Thank you for this consultation. We will continue to follow the patient with you. A [facility] of the [facility] available 27/09 via [employer]. Please don't hesitate to reach out with questions. Kofi Keith PA-C Admission and Anticipated Discharge Date Admission Date: December 21, 2021 Subjective Patient is postop day 1 left total knee. He is doing well this morning. Pain is well controlled. No other complaints. Results & Data Results & Data ([facility]) Vital Signs (Past 12 Hours) Vital Signs Temp Pulse Pulse Resp BP Pulse Ox O2 Del Method 12/22/21 13:24 36.4 C L 82 78 18 114/68 96 12/22/21 03:16 36.4 C L 78 18 114/68 96 CPAP Laboratory Results Short CBC 12/22/21 Range/Units 05:54 WBC 19.26 H (4.8-10.8) K/ul Hgb 10.8 L (14.0-18.0) g/dl Hct 32.5 L (40.1-51.0) % Plt Count 212 (130-400) K/uL BMP 12/22/21 05:54 Sodium 137 Potassium 4.1 Chloride 106 Carbon Dioxide 25 BUN 23 Creatinine 0.98 Glucose 125 H Calcium 9.0 Medications Administered Current Inpatient Medications Acetaminophen (Acetaminophen 500 Mg Tab) 1,000 mg PO Q8 VIBHA Stop: 01/20/22 15:59 Last Admin: 12/22/21 05:48 Dose: 1,000 mg Aspirin (Aspirin 81 Mg Ectab) 81 mg PO BID [facility] Stop: 01/20/22 20:59 Last Admin: 12/22/21 11:59 Dose: 81 mg Bisacodyl (Bisacodyl 10 Mg Supp) 10 mg [place] DAILY PRN PRN Reason: Constipation Stop: 01/20/22 13:43 Carbidopa/Levodopa (Carbidopa/Levodopa 25/100mg Tab) 1 tab PO BID [facility] Stop: 01/20/22 20:59 Last Admin: 12/22/21 09:31 Dose: 1 tab Docusate Sodium (Docusate Sodium 100 Mg Cap) 100 mg PO BID [facility] Stop: 01/20/22 20:59 Last Admin: 12/22/21 12:00 Dose: Not Given Finasteride (Finasteride 5 Mg Tab) 5 mg PO QAM [facility] Stop: 01/21/22 08:59 Last Admin: 12/22/21 09:32 Dose: 5 mg Gabapentin (Gabapentin 100 Mg Cap) 100 mg PO TODAY@1800,2100 [facility] Stop: 01/20/22 17:59 Last Admin: 12/21/21 21:56 Dose: Not Given Hydromorphone HCl (Hydromorphone Inj 0.5 Mg/0.5 Ml Syr) 0.5 mg IV Q4H PRN PRN Reason: Pain or Pre PT Stop: 01/04/22 13:43 Magnesium Hydroxide (Magnesium Hydroxide Susp 30 Ml Udc) 30 ml PO Q6H PRN PRN Reason: Constipation Stop: 01/20/22 13:43 Magnesium Oxide (Magnesium Oxide 400 Mg Tab) 400 mg PO QAM [facility] Stop: 01/21/22 08:59 Last Admin: 12/22/21 09:44 Dose: 400 mg Meloxicam (Meloxicam 7.5 Mg Tab) 15 mg PO QAM [facility] Stop: 01/21/22 08:59 Last Admin: 12/22/21 09:32 Dose: 15 mg Metoclopramide HCl (Metoclopramide Hcl Inj 5 Mg/Ml 2 Ml Vial) 10 mg IV Q6H PRN PRN Reason: Nausea And Vomiting Stop: 01/20/22 13:43 Metoprolol Succinate (Metoprolol Succ 25mg Ext Rel Tab) 25 mg PO QAM [facility] Stop: 01/21/22 08:59 Last Admin: 12/22/21 09:32 Dose: 25 mg Multivitamins (Multivitamin Tab) 1 tab PO QAM [facility] Stop: 01/21/22 08:59 Last Admin: 12/22/21 12:00 Dose: Not Given Naloxone HCl (Naloxone Hcl 0.4 Mg/1 Ml Vial/Carp) 0.1 mg IV Q5M PRN PRN Reason: Oversedation/Resp Depression Stop: 01/20/22 13:43 Ropinirole 4 Mg Tablet Extended Release 24 Hr) Non- Formulary Patient's Own Med 1 each PO BID@1840,4193 [facility] Stop: 01/20/22 17:29 Last Admin: 12/22/21 05:48 Dose: 1 tab Ondansetron HCl (Ondansetron Inj 2 Mg/Ml 2 Ml Vial) 4 mg IV Q6H PRN PRN Reason: Nausea And Vomiting Stop: 01/20/22 13:43 Oxybutynin Chloride (Oxybutynin Chloride Xl 5 Mg Tabcr) 15 mg PO HS [facility] Stop: 01/20/22 20:59 Last Admin: 12/21/21 21:55 Dose: 15 mg Rosuvastatin Calcium (Rosuvastatin Calcium 20 Mg Tab) 20 mg PO QPM [facility] Stop: 01/20/22 20:59 Last Admin: 12/21/21 21:55 Dose: 20 mg Sennosides (Senna 8.6 Mg Tab) 17.2 mg PO HS [facility] Stop: 01/20/22 20:59 Last Admin: 12/21/21 21:57 Dose: 17.2 mg Tramadol HCl (Tramadol Hcl 50 Mg Tablet) 50 - 100 mg PO Q4H PRN PRN Reason: Pain & Pre PT Stop: 01/20/22 13:43 Vitamin D (Cholecalciferol 400 Units 10 Mcg Tab) 400 units PO QAM [facility] Stop: 01/21/22 08:59 Last Admin: 12/22/21 09:44 Dose: 400 units Zinc Sulfate (Zinc Sulfate 220 Mg Capsule) 220 mg PO Q2D [facility]IBHA Stop: 01/21/22 08:59 Last Admin: 12/22/21 09:45 Dose: 220 mg
--- NOTE | 2021-12-23 07:14 | Discharge Summary ---
Date of Service December 23, 2021 Admission HPI Per Admitting Provider 81-year-old male with past medical history significant for CAD, GERD, hypertension, restless leg, previous right total knee who presents with ongoing left knee pain. Patient has recurrent effusion and pain in his knee interfering with his daily activities. He has failed conservative measures including anti- inflammatories and multiple cortisone injections and viscoelastic injections. He would like to proceed with surgical intervention. Patient denies headaches, sweats, fevers, chills, double vision, blurred vision, cough, sore throat, dysphagia, chest pain, sob, wheezing, n/v/d/c, numbness, tingling, fatigue, urinary symptoms, mood disorders. ROS positive for Left knee pain and stiffness. Admission Exam Per Admitting Provider Constitutional: well developed and well nourished; no acute distress Eyes: PERRL, conjunctivae normal, anicteric sclerae ENMT: external ear and nose normal, oropharynx normal Neck: trachea midline, no thyromegaly Respiratory: normal respiratory effort, lungs clear to auscultation Cardiovascular: RRR, no murmur, no edema Musculoskeletal: Left knee: Left knee demonstrates varus alignment. There is moderate effusion. He has tenderness medial joint line. Stable to valgus and varus stress test. Negative Atul's. Range of motion is 0 125 degrees.There is crepitation with range of motion. Skin: no rashes, warm and dry Neurologic: patellar DTR's 2+ bilat, sensation intact Psychiatric: A+Ox3, euthymic affect Principal Diagnosis Left knee osteoarthritis Discharge Exam Left knee: Dressing is clean, dry, intact. Toes are mobile with good dorsiflexion no calf tenderness. Distally neurovascular status and sensation intact. Constitutional WD/WN, vitals as above Discharge Data Allergies Allergy/AdvReac Type Severity Reaction Status Date / Time mirabegron [From Myrbetriq] Allergy "can't Verified 12/21/21 08:06 remember the reaction" hydrocodone AdvReac Unknown GI UPSET Verified 12/21/21 08:06 oxycodone AdvReac Unknown GI UPSET Verified 12/21/21 08:06 vicodin Allergy Unknown Uncoded 12/21/21 08:06 Consultations 12/17/21 14:25 Consult Hospitalist Routine Procedures Performed Operation Date: 12/21/21 09:25 Actual Procedures p Left Total Knee Arthroplasty(Left) - Raphael uLgo MD Ordered Studies 12/21/21 05:00 US - OR guided needle placemen Routine Hospital Course (1) Primary osteoarthritis of left knee: Postop day #1 left total knee -PT/OT -Pain management as written -DVT prophylaxis: SCDs, teds, aspirin 81 mg twice daily -AM labs: Hemoglobin 10.8 from 13 preop. Acute blood loss anemia likely due to surgical loss versus dilutional. Leukocytosis likely reactive. Asymptomatic. -Discharge planning: Patient plans on going to [place] postop. He states he has been in contact with them and a 2 of the bed available for him. Patient is stable for discharge once transferred to [place] with set up. Case management consult has been placed. Lab Results 12/21/21 12/22/21 12/22/21 Range/Units 07:34 05:54 05:54 WBC 19.26 H (4.8-10.8) K/ul RBC 3.65 L (4.63-6.08) M/uL Hgb 10.8 L (14.0-18.0) g/dl Hct 32.5 L (40.1-51.0) % MCV 89.0 (80.0-100.0) fL MCH 29.6 (25.0-34.0) pg MCHC 33.2 (32.0-36.0) g/dL RDW Std Deviation 40.4 (36.4-46.3) fL RDW Coeff of Millie 12.3 (11.5-14.5) % Plt Count 212 (130-400) K/uL MPV 11.1 (9.4-12.4) fL Sodium 137 (136-145) mmol/L Potassium 4.1 (3.5-5.1) mmol/L Chloride 106 (98-107) mmol/L Carbon Dioxide 25 (21-32) mmol/L Anion Gap 6 (3-11) BUN 23 (6-23) mg/dl Creatinine 0.98 (0.6-1.4) mg/dl Est Cr Clr Drug Dosing 64.1 ml/min Est GFR ( Amer) 82.9 ml/min Est GFR (Non-Af Amer) 71.5 ml/min BUN/Creatinine Ratio 23.5 H (10-20) Glucose 125 H (70-99(Fasting)) mg/dl Calcium 9.0 (8.5-10.1) mg/dl SARS-CoV-2, RNA, NAAT NEGATIVE (NEGATIVE) 12/22/21 Range/Units Unknown WBC (4.8-10.8) K/ul RBC (4.63-6.08) M/uL Hgb (14.0-18.0) g/dl Hct (40.1-51.0) % MCV (80.0-100.0) fL MCH (25.0-34.0) pg MCHC (32.0-36.0) g/dL RDW Std Deviation (36.4-46.3) fL RDW Coeff of Millie (11.5-14.5) % Plt Count (130-400) K/uL MPV (9.4-12.4) fL Sodium (136-145) mmol/L Potassium (3.5-5.1) mmol/L Chloride (98-107) mmol/L Carbon Dioxide (21-32) mmol/L Anion Gap (3-11) BUN (6-23) mg/dl Creatinine (0.6-1.4) mg/dl Est Cr Clr Drug Dosing ml/min Est GFR ( Amer) ml/min Est GFR (Non-Af Amer) ml/min BUN/Creatinine Ratio (10-20) Glucose (70-99(Fasting)) mg/dl Calcium (8.5-10.1) mg/dl SARS-CoV-2, RNA, NAAT NEGATIVE (NEGATIVE) Total Time Total Time Spent Total Time Spent (In Minutes): 20 Discharge Plan Discharge Items Patient Disposition: Transfer Long-Term Fac Reason For Visit: Left Knee Osteoarthritis Discharge Diagnosis: Left knee osteoarthritis Activity: Per Instructions section Non-emergency contact: Surgeon Call non-emergency contact if: you have any medication questions, your pain is not controlled, your pain is concerning for you, you have a fever, your temperature is above 101, your wound has increased redness and your wound has increased drainage Follow-up/Referrals: Cresencio Still MD [Primary Care Provider] - Diet: Regular Addtl Attending Provider Instructions: ACTIVITY RECOMMENDATIONS: SELF CARE INSTRUCTIONS AFTER TOTAL KNEE REPLACEMENT A. You may need to continue a physical therapy program after discharge from the hospital. There are several options available to you. Your doctor will assist you in selecting the best one for you. 1. An out-patient facility 2 to 3 times a week for therapy or home therapy. 2. Continue working on all exercises taught to you in the hospital. Your goals should be to increase bending of your knee to 90 degrees and beyond and to fully straighten your knee. B. You may progress at your own pace from walking with a walker or crutches to a cane; then to no assistive devices. C. Make walking a part of your daily routine. Be up as much as comfortable with rest periods throughout the day. Rest with leg elevation is very important. Use the ice wrap frequently for the first 3-4 weeks. D. There are no restrictions on activities. You may ride in a car, shop, participate in admitting counselor and all social activities. E. Wear the long elastic stockings (DESIRE hose) 20 hours a day for 2 weeks after surgery. They can be removed several times a day for laundering and for a bath. F. You may shower, no tub baths until cleared by your doctor. SPECIAL CARE INSTRUCTIONS: VERY IMPORTANT TO READ AND REVIEW A. There are a few signs you need to watch for after you are home. Call [facility] if you notice any of the followin. Increased severe knee pain. Some pain is expected especially when you exercise. 2. Increased swelling in your leg or knee; pain or swelling of the calf muscle in either lower leg. 3. Any fluid drainage from the incision. 4. Shortness of breath or chest pain. B. Please call [facility] at if you have any concerns or questions about your operation or recovery. The doctor or his nurse will return your call promptly. C. You must take antibiotics before dental work, bladder, bowel or other surgery. Your doctor will provide you with a permanent care to carry describing this precaution. IMPORTANT: * REMEMBER TO TAKE ASPIRIN, 81 MG, TWICE DAILY FOR 4 WEEKS UNLESS OTHERWISE DIRECTED. THIS IS YOUR BLOOD THINNER. * HIGH RISK PATIENTS MAY BE PRESCRIBED A STRONGER BLOOD THINNER. THIS WILL BE PROVIDED AT DISCHARGE. * CALL IF INCREASED PAIN, REDNESS, DRAINAGE OR FEVER GREATER THAT 101. * WEAR DESIRE HOSE 20 HOURS PER DAY FOR 2 WEEKS. This is a large suction dressing covering your incision. This will help pull any excess drainage from the wound and allow your incision to heal properly. Yo u may shower with this if you can keep the unit outside of the shower. If any bleeding or leakage is noted please call your doctor's office. This will remain on your incision for 7 days and then should be removed. This can be done yourself or by the home nursing staff if applicable. The entire unit is disposable once removed. Once removed, keep incision clean and dry. If redness or drainage is noted, please call your surgeon. IF INCISION IS LEAKING THROUGH DRESSING, CALL THE OFFICE . FOLLOW UP VISIT: If appointment is not already scheduled: Please call [facility] to make a follow-up appointment for 2 weeks after your surgery at . Stand-Alone Forms: My [facility] Skilled Items Patient informed of condition?: Yes DNR: No Discharge Level of Care: Skilled Communicable Disease: No Discharge Prognosis: Improving Lines: None Urinary Catheter: No (does not have one) Medications and DC Order Prescriptions: New aspirin 81 mg Tablet,Delayed Release (Dr/Ec) 81 mg PO BID Qty: 60 0RF tramadol 50 mg Tablet 50 - 100 mg PO .Q4h-6h MDD 6 PRN (Reason: pain) Qty: 30 0RF Rx Instructions: Ongoing therapy, Dr. Lugo supervising acetaminophen [Tylenol Extra Strength] 500 mg Tablet 1,000 mg PO Q8 Qty: 60 0RF Continued zinc sulfate 220 (50) mg Capsule 25 mg PO Q2D Qty: 0 metoprolol succinate 50 mg Tablet Extended Release 24 Hr 25 mg PO QAM Qty: 30 gabapentin 100 mg Capsule 100 mg PO DIRECTED Qty: 0 Rx Instructions: Q6PM and QHS carbidopa-levodopa [Sinemet] 25-100 mg Tablet 1 tab PO BID Qty: 0 magnesium oxide 400 mg Capsule 400 mg PO QAM Qty: 0 ropinirole 4 mg Tablet Extended Release 24 Hr 4 mg PO BID Qty: 0 Rx Instructions: between 5 and 6 am, and between 5 and 6 pm. Needs specific brand rosuvastatin 20 mg capsule, sprinkle 20 mg PO QPM oxybutynin chloride 15 mg Tablet Extended Release 24hr 15 mg PO QPM meloxicam 15 mg Tablet 15 mg PO QAM sildenafil 25 mg Tablet 25 mg PO UD PRN (Reason: sexual intercourse) Rx Instructions: administer 30 minutes to 4 hours before activity tadalafil 5 mg Tablet 5 mg PO HS finasteride 5 mg tablet 5 mg PO QAM cholecalciferol (vitamin D3) [Vitamin D3] 10 mcg (400 unit) Tablet 10 mcg PO QAM Discontinued aspirin [Aspir-81] 81 mg Tablet,Delayed Release (Dr/Ec) 81 mg PO QPM 90 Days Qty: 0 Discharge Orders: Discharge Order (Routine); Ordered 12/22/21 Ordered By: Alberto Rich Admission Data Admit Date/Time: 12/21/21 12:18 Attending Provider: Raphael Lugo Admit Provider: Raphael Lugo Primary Care Provider: Cresencio Still Other Providers: Blanca Martinez ; Suzi Langley Other Interventions: Discharge Summary Assessment (RN) Last Done: 12/22/21 13:24
== END 2021-12-22 14:13 ==
LOC: 3E 07:06 → ASU 07:06